=== PATIENT | female | born 1995 | race African-American/Black ===

== ENCOUNTER 2016-06-03 19:23 | Emergency (ER) ==
--- NOTE | 2016-06-03 19:47 | PROVIDER DOCUMENTATION ---
[facility] General <Meredith Zayas Raysa - Last Filed: 06/03/16 21:42> - General Source: patient - History of Present Illness-[facility] Location: reports: throat Quality of Pain: reports: sharp, stabbing Severity: reports: moderate Onset/Duration: reports: 4 days ago Timing: reports: still present, getting worse Prearrival Treatment: Initiated prescription meds Associated Symptoms: denies: drooling Similar Symptoms Previously?: Yes Recently seen or treated by another doctor?: Yes - Throat/Dental Throat/Dental Problem Symptoms: reports: sore throat. denies: swelling of jaw/ face <Nara Paz - Last Filed: 06/04/16 08:40> - General Stated Complaint: COLD SX Time Seen by Provider: 06/03/16 19:33 Allergies/Adverse Reactions: Patient Allergies Allergy/AdvReac Type Severity Reaction Status Date / Time No Known Allergies Allergy Verified 04/02/16 10:20 - History of Present Illness-[facility] General Nature of Presenting Problem: 21 yo female presents to the emergency room with a chief complaint of fever, throat pain and difficulty swallowing X 4 days. Reports was seen at [facility] x 2 days ago and got her antibiotics filled this morning and not any better. Denies shortness of breath or N/V/D. (Nara Paz) Review of Systems - Adult - REVIEW OF SYSTEMS - ADULT Constitutional: reports: chills, fever Eyes: reports: no symptoms reported Ears, Nose, Mouth & Throat: reports: throat pain, throat swelling Cardiovascular: reports: no symptoms reported Respiratory: reports: cough Gastrointestinal: reports: no symptoms reported Genitourinary: reports: no symptoms reported Musculoskeletal: reports: no symptoms reported Integumentary: reports: no symptoms reported Neurological: reports: no symptoms reported Psychiatric: reports: no symptoms reported Endocrine: reports: no symptoms reported Hematologic/Lymphatic: reports: no symptoms reported Allergic/Immunologic: reports: no symptoms reported All Other Systems: Reviewed and Negative <Nara Paz - Last Filed: 06/04/16 08:40> Past History - Adult - PAST MEDICAL HISTORY-ADULT Review of Records: reports: Nursing Assessment Review, Medications Reviewed Major Childhood Illnesses: reports: denies history Cardiovascular: reports: denies history Respiratory: reports: asthma Gastrointestinal: reports: denies history Obstetrical/Gynecological: reports: denies history Genitourinary: reports: denies history Musculoskeletal: reports: denies history Neurological: reports: denies history Endocrine/Immune: reports: denies history Other Conditions: reports: denies history - PRIOR SURGERIES/PROCEDURES Surgical/Procedure History: reports: none - PRIOR HOSPITALIZATIONS Prior Hospitalizations: reports: none - IMMUNIZATION STATUS Childhood Immunizations: See Nurse Assessment Flu Vaccine: See Nurse Assessment - FAMILY HISTORY Family History: reviewed, not pertinent <Nara Paz - Last Filed: 06/04/16 08:40> Physical Exam- EENT - Physical Exam EENT General Appearance: mild distress Eye Exam: bilateral eye: normal inspection, PERRL, EOMI Nasal Exam: discharge (clear rhinorrhea). negative: sinus tenderness Throat Exam: tonsillar exudate, tonsillar swelling Neck: non-tender, full range of motion, supple, lymphadenopathy Respiratory: lungs clear, normal breath sounds Cardiovascular: regular rate, rhythm, no edema Extremity: normal gait, normal inspection Integumentary: normal color, normal turgor, warm/dry. negative: rash Neurologic: grossly normal, no motor/sensory deficits Psych/Mental Status: normal thought content, normal thought process <Meredith Zayas - Last Filed: 06/03/16 21:42> - Physical Exam EENT Initial Vital Signs Reviewed: Yes General Appearance: appears well, alert Eye Exam: bilateral eye: PERRL, EOMI Ear Exam: bilateral ear: canal normal, TM normal Throat Exam: pharynx tenderness Neck: full range of motion, supple Respiratory: lungs clear, normal breath sounds Abdominal Exam: non tender, soft <Nara Paz - Last Filed: 06/04/16 08:40> Progress <Meredith Zayas - Last Filed: 06/03/16 21:42> - CHANGE OF SHIFT REPORT (ED Provider) Report Given and Care Transferred to:: Meredith Ley Time of Transfer: 20:20 Tentative Impression of Patient: good <Nara Paz - Last Filed: 06/04/16 08:40> - PLAN OF CARE/RESULTS Progress/Plan/Lab Results: Vital Signs Temp Pulse Resp BP Pulse Ox 06/03/16 19:55 100.1 F H 108 H 18 101/80 100 No Known Allergies Allergy (Verified 04/02/16 10:20) Amoxicillin [Amoxil] 500 mg PO BID #20 capsule 06/01/16 Orders Category Date Time Status Dexamethasone [Decadron] Med 06/03/16 21:42 Discontinued 10 mg IM NOW ONE Ibuprofen [Motrin Liquid] Med 06/03/16 21:31 Discontinued 600 mg .ROUTE .STK-MED ONE Ibuprofen [Motrin] Med 06/03/16 20:25 Discontinued 600 mg PO NOW ONE Penicillin G Benzathine [Bicillin l-A] Med 06/03/16 21:42 Discontinued 1,200,000 unit IM NOW ONE (Meredith Zayas) Departure - Departure Time of Disposition Order: 21:43 Certified Medical Emergency: Emergent <Meredith Zayas - Last Filed: 06/03/16 21:42> - Departure Certified Medical Emergency: Urgent <Nara Paz - Last Filed: 06/04/16 08:40> - Departure DIAGNOSIS: Tonsillitis with exudate Disposition: HOME 01 Condition: Good Additional Instructions: take antibiotics as prescribed ED Follow Up Instructions: You have been treated by a care provider in the Emergency Department. These instructions are being provided to you so you can have an understanding of how to care for yourself upon discharge. Upon discharge from the Emergency Department, you are responsible for making arrangements for follow-up care by a physician of your choice. Take all prescribed medications as directed. Return to the Emergency Department immediately for any new or worsening symptoms. You may call the Physician Referral phone number at [phone] to obtain a list of Physicians who are taking new patients. Referrals: None,PCP [Primary Care Provider] - Gisela Ramírez MD [STAFF PHYSICIAN] - Forms: Return to School/Parent Work Instructions: Tonsillitis Attestation - Physician/ Mid-level Attestation Patient care was provided by Mid-level provider (MILITARY PILOT/PA):: Yes Mid-level provider:: Meredith Zayas Mid-level documentation review:: The Mid-level provider documentation, treatment plan and medical decision making was reviewed by the physician who agrees with all treatment and medical decision making by the P. <Meredith Zayas - Last Filed: 06/03/16 21:42> - Physician/ Mid-level Attestation Patient care was provided by Mid-level provider (MILITARY PILOT/PA):: Yes Mid-level provider:: Nara Paz Mid-level documentation review:: The Mid-level provider documentation, treatment plan and medical decision making was reviewed by the physician who agrees with all treatment and medical decision making by the MLP. <Nara Paz - Last Filed: 06/04/16 08:40> Physician Attestation
[2016-06-03] MEDS ORDERED: MOTRIN PO ONE (20:25)
[2016-06-03] MEDS ORDERED: MOTRIN LIQUID ONE (21:31)
[2016-06-03] MEDS ORDERED: DECADRON IM ONE (21:42)
[2016-06-03] MEDS ORDERED: BICILLIN L-A IM ONE (21:42)
[2016-06-03] MEDS ORDERED: DECADRON ONE (21:47)
[2016-06-03 22:23] VITALS: BP 110/74
== END 2016-06-03 22:22 | disposition home or self-care (01) ==
LOC: P.ED 19:23
DX: J03.90 Acute tonsillitis, unspecified (principal); R50.9 Fever, unspecified; R07.0 Pain in throat; R13.10 Dysphagia, unspecified; R22.1 Localized swelling, mass and lump, neck; R05 Cough; J45.909 Unspecified asthma, uncomplicated; J34.89 Other specified disorders of nose and nasal sinuses; R59.1 Generalized enlarged lymph nodes
CPT/HCPCS: 96372; J0561